=== PATIENT | male | born 2000 | race Two or more races ===

== ENCOUNTER 2022-10-16 23:25 | Emergency (ER) | payer MEDICAID ==
[~2022-10-16] VITALS: Ht 172.7 cm; Wt 84.4 kg
[2022-10-17 01:45] VITALS: TEMP 98.1
[2022-10-17] MEDS ORDERED: HYDROCODONE/APAP 5/325MG TABLET PO ONE (02:00)
[2022-10-17] MEDS ORDERED: HYDROCODONE/APAP 5/325MG TABLET ONE (02:03)
[2022-10-17 02:20] VITALS: BP 140/78; O2SAT 98
== END 2022-10-17 02:20 | disposition home or self-care (01) ==
LOC: ER 23:49
DX: L05.91 Pilonidal cyst without abscess (principal)